=== PATIENT | male | born 1980 | race American Indian/Alaskan Native ===

== ENCOUNTER 2018-01-10 14:38 | Emergency (ER) | payer OTHER ==
[2018-01-10 16:24] LABS: Basophils # (Auto) 0.1 K/mm3 (0.0-0.1); Basophils % (Auto) 0.6 % (0.0-1.8); Eosinophils # (Auto) 0.2 K/mm3 (0.0-0.4); Eosinophils % (Auto) 1.4 % (0.0-4.3); Hematocrit 45.3 % (35.5-45.6); Hemoglobin 15.4 gm/dl (11.8-15.2); Lymphocytes # (Auto) 4.3 K/mm3 (1.2-5.4); Lymphocytes % (Auto) 29.7 % (13.4-35.0); Mean Corpuscular HGB Conc 34 % (32-34); Mean Corpuscular Hemoglobin 27 pg (28-32); Mean Corpuscular Volume 80 fl (84-94); Monocytes # (Auto) 1.1 K/mm3 (0.0-0.8); Monocytes % (Auto) 7.8 % (0.0-7.3); Red Blood Count 5.67 M/mm3 (3.65-5.03); Red Cell Distribution Width 12.7 % (13.2-15.2)
[2018-01-10 16:26] LABS: Platelet Count 210 K/mm3 (140-440)
[2018-01-10] MEDS ORDERED: ZOFRAN IV ONE (16:31)
[2018-01-10] MEDS ORDERED: NACL 0.9% 1000 ML 1,000 ML IV ONE (16:31)
[2018-01-10 16:36] LABS: BUN/Creatinine Ratio 37; Blood Urea Nitrogen 11 mg/dL (9-20); Calcium 8.7 mg/dL (8.4-10.2); Hemolysis Index 103
[2018-01-10 16:38] LABS: Bilirubin,Urine NEG (Negative); Blood,Urine NEG (Negative); Color,Urine Yellow (Yellow); Protein,Urine <15 mg/dL mg/dL (Negative); Urobilinogen,Urine < 2.0 mg/dL (<2.0)
[2018-01-10 16:40] LABS: Amphetamine Screen,Urine PRESUMPTIVE NEGATIVE; Benzodiazepines Screen,Urine PRESUMPTIVE NEGATIVE; Cannabinoid Screen,Urine PRESUMPTIVE NEGATIVE; Cocaine Screen,Urine PRESUMPTIVE NEGATIVE; Methadone Screen,Urine PRESUMPTIVE NEGATIVE
--- NOTE | 2018-01-10 16:43 | Emergency Department Report ---
HPI - General Chief Complaint: Psych Time Seen by Provider: 01/10/18 16:10 - HPI HPI: 37-year-old male presents to the emergency department via EMS from [facility] with a complaint of an infection to the right forearm as well as some possible withdrawal from opiate abuse. The patient is currently a voluntary admission at [facility] due to heroin abuse. He last used on Monday, 5 days ago, and does admit to IV drug abuse. He says that he has been unable to sleep, he has been having nausea and vomiting, diarrhea. He also has a "sore" and/or infection to the right forearm that has been draining some pus. He admits that this may be an area where he was previously injecting himself. He denies any fever, chest pain, shortness of breath. He does have a history of diabetes. Patient apparently had some blood work done at [facility] that showed a elevated white blood cell count of about 22,000. ED Past Medical Hx - Past Medical History Previous Medical History?: Yes Hx Diabetes: Yes - Surgical History Past Surgical History?: Yes Additional Surgical History: Broken arm at 10 years old - Social History Smoking Status: Current Every Day Smoker Substance Use Type: Heroin - Medications Home Medications: Home Medications Medication Instructions Recorded Confirmed Last Taken Type BUPRENORPHINE hcl [Subutex] 2 mg SL Q4H 01/10/18 01/10/18 01/10/18 History Benztropine [Cogentin] 1 mg PO Q4H PRN 01/10/18 01/10/18 Unknown History Eucalyptus/Menthol [Cough Drops] 1 each PO Q3H PRN 01/10/18 01/10/18 Unknown History LORazepam [Ativan] 1 mg PO Q8H PRN 01/10/18 01/10/18 01/10/18 History Loratadine [Claritin] 10 mg PO DAILY 01/10/18 01/10/18 Unknown History Magnesium Hydroxide [Milk of 30 ml PO DAILY PRN 01/10/18 01/10/18 Unknown History Magnesia] Metformin HCl [Glucophage] 1,000 mg PO BID 01/10/18 01/10/18 01/10/18 History Ondansetron [Zofran Odt] 4 mg PO Q8H PRN #10 tab.rapdis 01/10/18 Unknown Rx Promethazine HCl [Promethazine INJ] 25 mg IJ Q4H PRN 01/10/18 01/10/18 Unknown History Promethazine [Phenergan TAB] 25 mg PO Q4H PRN 01/10/18 01/10/18 01/10/18 History Sulfamethoxazole/Trimethoprim 1 each PO BID #20 tablet 01/10/18 Unknown Rx [Bactrim DS TAB] Ziprasidone Mesylate [Geodon] 20 mg IM Q8H 01/10/18 01/10/18 Unknown History Ziprasidone [Geodon] 20 mg PO Q8H PRN 01/10/18 01/10/18 01/10/18 History cloNIDine [Catapres] 0.1 mg PO Q8H PRN 01/10/18 01/10/18 Unknown History hydrOXYzine PAMOATE [Vistaril] 50 mg PO Q8H PRN 01/10/18 01/10/18 Unknown History traZODone [Desyrel] 50 mg PO QHS PRN 01/10/18 01/10/18 Unknown History ED Review of Systems ROS: Stated complaint: DRUG WITHDRAWAL/ LOW WBC Other details as noted in HPI Comment: All other systems reviewed and negative Constitutional: chills. denies: fever Eyes: denies: eye pain, eye discharge, vision change ENT: denies: ear pain, throat pain Respiratory: denies: cough, shortness of breath, wheezing Cardiovascular: denies: chest pain, palpitations Gastrointestinal: nausea, vomiting, diarrhea Genitourinary: denies: urgency, dysuria Musculoskeletal: denies: back pain, arthralgia Skin: rash, lesions Neurological: denies: headache, numbness Physical Exam - Physical Exam Vital Signs: Vital Signs 01/10/18 15:51 Temperature 97.9 F Pulse Rate 55 L Respiratory 16 Rate Blood Pressure 116/59 [Left] O2 Sat by Pulse 94 Oximetry Physical Exam: GENERAL: The patient is well-developed well-nourished. HENT: Normocephalic. Atraumatic. Patient has moist mucous membranes. EYES: Extraocular motions are intact. Pupils equal reactive to light bilaterally. NECK: Supple. Trachea is midline. CHEST/LUNGS: Clear to auscultation. There is no respiratory distress noted. HEART/CARDIOVASCULAR: Regular. There is no tachycardia. There is no murmur. ABDOMEN: Abdomen is soft, nontender. Patient has normal bowel sounds. There is no abdominal distention. SKIN: Skin is warm and dry. The patient has multiple small punctate puncture wounds from previous IV drug use. There is a oval shaped area to the right volar forearm that appears to be an abscess. It is about 3-4 inches in diameter. It is mostly indurated and there is a central opening consistent with his complaint of purulent drainage. No current bleeding or drainage. NEURO: The patient is awake, alert, and oriented. The patient is cooperative. The patient has no focal neurologic deficits. The patient has normal speech. Cranial nerves II through XII grossly intact. MUSCULOSKELETAL: There is no tenderness or deformity. There is no limitation range of motion. There is no evidence of acute injury. Radial pulse +2 over 4 and capillary refill less than 2 seconds to the affected right upper extremity. ED Course Vital Signs 01/10/18 15:51 Temperature 97.9 F Pulse Rate 55 L Respiratory 16 Rate Blood Pressure 116/59 [Left] O2 Sat by Pulse 94 Oximetry ED Medical Decision Making - Lab Data Result diagrams: 01/10/18 16:07 01/10/18 16:07 - Medical Decision Making The patient was sent in from a psychiatric facility with a complaint of nausea, vomiting, diarrhea, body aches and concerned that recent blood work showed a 22, 000 white blood cell count. Patient's labs here were mostly unremarkable. His white blood cell count was about 14,000 and there is no left shift or neutrophilia. The rest of his labs are mostly unremarkable as well. He is diabetic but his blood sugar appears controlled. Despite his complaints of nausea, vomiting and diarrhea does not have any significant electrolyte abnormalities or signs of systemic dehydration. We attempted to give some IV fluid but were unable to get peripheral IV access and since it appears as if we will be able to get the patient home, I did not feel that central line placement was warranted at this time. However he was given IM Zofran and oral antibiotics. He was reevaluated multiple times over multiple hours and appears improved. He was able to keep down some fluid without any further nausea or vomiting. I believe his previous leukocytosis may have been secondary to opiate withdrawal and his symptoms related to that as opposed to a systemic infection. We discussed cleaning the right forearm and he will take the antibiotics as prescribed. He was given some Zofran ODT for nausea and vomiting. He will return if there is any worsening of his symptoms or any worsening signs or symptoms of infection of the right forearm. Vital signs stable throughout his ED course including being afebrile. He understands and agrees to the plan. - Differential Diagnosis opiate withdrawal, abscess, cellulitis, sepsis Critical Care Time: No Critical care attestation.: If time is entered above; I have spent that time in minutes in the direct care of this critically ill patient, excluding procedure time. ED Disposition Clinical Impression: Opiate withdrawal, Abscess of forearm, right, History of intravenous drug abuse Nausea & vomiting Qualifiers: Vomiting type: unspecified Vomiting Intractability: non-intractable Qualified Code(s): R11.2 - Nausea with vomiting, unspecified Disposition: DC-01 TO HOME OR SELFCARE Is pt being admited?: No Condition: Stable Instructions: Abscess (ED), Opioid Withdrawal (ED) Additional Instructions: Please increase your oral rehydration. Take the antibiotics as prescribed. Your right forearm abscess/infection should be cleaned with soap and water and then kept dry. Please return to the emergency Department immediately if there is any worsening of this infection, development of fever, intractable vomiting, or with any acute distress. Prescriptions: Ondansetron [Zofran Odt] 4 mg PO Q8H PRN #10 tab.rapdis PRN Reason: Nausea Sulfamethoxazole/Trimethoprim [Bactrim DS TAB] 1 each PO BID #20 tablet Referrals: PRIMARY CARE, [Primary Care Provider] - [facility] Time of Disposition: 18:59
[2018-01-10 16:57] LABS: Opiate Screen,Urine PRESUMPTIVE POSITIVE
--- NOTE | 2018-01-10 17:44 | XRay Report ---
FINAL REPORT EXAM: XR FOREARM RT HISTORY: right forearm infection, IVDA TECHNIQUE: AP and lateral radiographs of the right forearm. PRIORS: None. FINDINGS: No fracture. No dislocation. Normal mineralization. No soft tissue abnormality. No bony erosion or periosteal reaction. IMPRESSION: No acute right forearm abnormality.
[2018-01-10] MEDS ORDERED: BACTRIM DS PO ONE (17:49)
[2018-01-10] MEDS ORDERED: ZOFRAN ODT PO ONE ×2 (17:49→21:03)
[2018-01-10] MEDS ORDERED: VANCOMYCIN/NS 1 GM/250 ML 1 GM/250 ML BAG IV SCH (18:00)
[2018-01-10] MEDS ORDERED: ZOFRAN IM ONE (18:17)
[2018-01-11 00:03] VITALS: BP 131/80
== END 2018-01-10 22:32 | disposition home or self-care (01) ==
LOC: ED 14:38
DX: F11.23 Opioid dependence with withdrawal (principal); R11.2 Nausea with vomiting, unspecified; L02.413 Cutaneous abscess of right upper limb; E11.9 Type 2 diabetes mellitus without complications; F17.200 Nicotine dependence, unspecified, uncomplicated
CPT/HCPCS: 36415; 73090; 80048; 80307; 81001; 82962; 85025; 87040; 96372; 99285; G0480; J2405; 80320; Q0162